=== PATIENT | male | born 1960 | race Caucasian/White ===

== ENCOUNTER 2017-03-28 22:06 | Outpatient (CLI) | payer OTHER | END 2017-03-28 22:07 | disposition home or self-care (01) | LOC: SC 22:06 | PROVIDERS: ATTEND Internal Medicine Pulmonary Disease | DX: G47.33 Obstructive sleep apnea (adult) (pediatric) (principal) | CPT/HCPCS: 95810 ==

== ENCOUNTER 2017-04-18 08:54 | Outpatient (CLI) | payer OTHER ==
--- NOTE | 2017-04-18 12:32 | XRAY Report ---
THREE VIEW LEFT SHOULDER: 04/18/2017 CLINICAL INDICATION: Pain. FINDINGS: Internal and external rotational views and a scapular Y view of the left shoulder demonstrate mild degenerative changes of the glenohumeral and acromioclavicular joints. An incidental enchondroma is noted in the proximal humerus. There is no evidence of fracture or dislocation. No radiopaque foreign body is seen in the soft tissues. IMPRESSION: MILD DEGENERATIVE CHANGES. TD: 04/18/2017 12:31
--- NOTE | 2017-04-18 12:33 | XRAY Report ---
THREE VIEW CERVICAL SPINE: 04/18/2017 CLINICAL INDICATION: Neck pain. FINDINGS: AP, lateral, swimmer's, odontoid views of the cervical spine demonstrate moderate degenerative disk disease. There is no evidence of fracture or subluxation. The prevertebral soft tissues are unremarkable. IMPRESSION: MODERATE DEGENERATIVE CHANGES. TD: 04/18/2017 12:32
== END 2017-04-18 08:55 | disposition home or self-care (01) ==
LOC: DI 08:54
PROVIDERS: ATTEND Internal Medicine
DX: I10 Essential (primary) hypertension (principal); R07.89 Other chest pain; M54.2 Cervicalgia; M50.30 Other cervical disc degeneration, unspecified cervical region; M19.011 Primary osteoarthritis, right shoulder
CPT/HCPCS: 72040; 93306

== ENCOUNTER 2017-05-07 09:12 | Outpatient (CLI) | payer OTHER | END 2017-05-07 09:13 | disposition home or self-care (01) | LOC: SC 09:12 | PROVIDERS: ATTEND Nurse Practitioner Family | DX: G47.33 Obstructive sleep apnea (adult) (pediatric) (principal) | CPT/HCPCS: 99212; 99214 ==

== ENCOUNTER 2018-02-20 08:49 | Outpatient (CLI) | payer OTHER ==
--- NOTE | 2018-02-20 11:01 | CARDIAC PROCEDURE NOTE ---
DATE OF SERVICE: 02/20/2018 Physician: Rachel Hein MD, [facility] INDICATIONS: Chest pain. CARDIAC RISK FACTORS: Male gender, obesity, hypertension, family history of heart disease. SUMMARY: After signing informed consent, the patient underwent a Dudley protocol stress test. There was no imaging ordered with this study. Resting heart rate: 70, Peak heart rate: 143 (86% predicted maximum heart rate for age). Resting blood pressure: 150/72, Peak blood pressure: 210/85. The patient exercised for 9 minutes and 46 seconds on a Dudley protocol. He achieved a peak heart rate of 143 (86% PMHR), 11.2 METS. The patient had mild shortness of breath at peak, no chest pain during exercise. Blood pressure response was excessive. RESTING EKG: Normal sinus rhythm, frequent PVCs, some episodes of ventricular trigeminy, early RS transition. With exercise, the PVCs subsided. PEAK EKG: No ischemic changes by EKG criteria. IMPRESSION: 1. Fair to good exercise tolerance. 2. Poorly controlled blood pressure. 3. No ischemic changes by EKG criteria at an adequate level of stress on a Dudley protocol treadmill test. 4. No imaging was ordered with this study. TD: 02/20/2018 10:43 RACHEL
== END 2018-02-20 08:50 | disposition home or self-care (01) ==
LOC: DI 08:49
PROVIDERS: ATTEND Nurse Practitioner Family
DX: I49.9 Cardiac arrhythmia, unspecified (principal); E66.9 Obesity, unspecified; I10 Essential (primary) hypertension; Z82.49 Family history of ischemic heart disease and other diseases of the circulatory system
CPT/HCPCS: 93017

== ENCOUNTER 2019-05-31 07:29 | Outpatient (CLI) | payer OTHER ==
[2019-05-31 10:43] LABS: ALBUMIN 4.1 g/dL (3.2-5.5); ALBUMIN/GLOBULIN RATIO 1.3 (1.0-2.2); ALKALINE PHOSPHATASE 75 IU/L (42-121); ALT ALANINE AMINOTRANSFERASE 56 IU/L (10-60); AST ASPARTATE AMINOTRANSFERASE 36 IU/L (10-42); BILIRUBIN,TOTAL 0.6 mg/dL (0.2-1.0); BUN - BLOOD UREA NITROGEN 20 mg/dL (6-20); CALCIUM 9.1 mg/dL (8.5-10.3); CARBON DIOXIDE - CO2 23 mmol/L (21-32); CHLORIDE 107 mmol/L (101-111); CHOLESTEROL 217 mg/dL; CREATININE 1.1 mg/dL (0.6-1.2); GLUCOSE 107 mg/dL (70-100); HDL CHOLESTEROL 31 mg/dL; SODIUM 139 mmol/L (135-145); TOTAL PROTEIN 7.2 g/dL (6.7-8.2)
[2019-05-31 13:52] LABS: LDL CHOLESTEROL,DIRECT 111 mg/dL; LDLD/HDL RATIO 3.6 (<3.6)
== END 2019-05-31 07:30 | disposition home or self-care (01) ==
LOC: LAB.S 07:29
PROVIDERS: ATTEND Family Medicine
DX: I10 Essential (primary) hypertension (principal); E78.2 Mixed hyperlipidemia
CPT/HCPCS: 36415; 80053; 80061; 83721

== ENCOUNTER 2019-09-20 16:01 | Outpatient (CLI) | payer OTHER ==
[2019-09-20] MEDS ORDERED: IOVERSOL 320 100 ML VIAL IVP ONE ×2 (16:17→20:33)
[2019-09-20] MEDS ORDERED: IOVERSOL 320 50 ML VIAL ONE (16:17)
--- NOTE | 2019-09-20 18:45 | CT Report ---
PROCEDURE: Abdomen/Pelvis W INDICATIONS: LLQ PAIN CONTRAST: IV CONTRAST: Optiray 320 ml: 100 PO CONTRAST: Optiray 320 ml50 TECHNIQUE: After the administration of oral and intravenous contrast, 5 mm thick sections acquired from the diap hragms to the symphysis. 5 mm thick coronal and sagittal reformats were acquired. For radiation dos e reduction, the following was used: automated exposure control, adjustment of mA and/or kV accordin g to patient size. COMPARISON: None. FINDINGS: Image quality: Excellent. ABDOMEN: Lung bases: Lung bases are clear. Heart size is normal. Solid organs: Liver and spleen are normal in size and enhancement. Gallbladder is within normal dyer its Biliary system is non dilated. Pancreas enhances normally. No adrenal nodules. Kidneys demons trate normal size and enhancement, without hydronephrosis. 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 Prominent left peripelvic cysts are also noted. Peritoneum and bowel: Bowel loops demonstrate normal wall thickness and caliber. No free fluid or a ir. Appendix is visualized and is within normal limits. A few sigmoid diverticuli are seen, no CT ev idence of acute diverticulitis. Nodes and vessels: No retroperitoneal or mesenteric adenopathy by size criteria. Aorta and inferior vena cava are normal in size. Miscellaneous: No ventral hernias. PELVIS: Genitourinary: Bladder wall thickness is normal. Miscellaneous: No inguinal hernias or adenopathy. Bones: No suspicious bony lesions. No vertebral body compression fractures. Degenerative disc dise ase throughout lower thoracic and lumbar spine is seen. IMPRESSION: 1. No bowel obstruction. No abnormal bowel wall thickening. Normal appearing appendix. A few sigmoid diverticuli with no CT evidence of acute diverticulitis. No free fluid of free air. 2. 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 Prominent left parapelvic renal cysts. No r enal stone or hydronephrosis. Reviewed by: Miah York MD on 09/20/2019 6:43 PM PDT Approved by: Miah York MD on 09/20/2019 6:43 PM PDT Station ID: [id number]
[2019-09-20] MEDS ORDERED: IOVERSOL 320 50 ML VIAL PO ONE (20:33)
== END 2019-09-20 16:02 | disposition home or self-care (01) ==
LOC: DI 16:01
PROVIDERS: ATTEND Nurse Practitioner Family
DX: R10.32 Left lower quadrant pain (principal)
CPT/HCPCS: 74177; Q9967

== ENCOUNTER 2020-04-27 06:45 | Outpatient (CLI) | payer OTHER ==
--- NOTE | 2020-04-27 09:59 | Ultrasound Report ---
PROCEDURE: Abdomen Complete INDICATIONS: ABDOMINAL PAIN TECHNIQUE: Real-time scanning was performed of the abdominal and retroperitoneal organs, with image documentatio n. COMPARISON: 09/20/2019 FINDINGS: Liver: Mildly increased hepatic parenchymal echogenicity. Otherwise unremarkable liver Gallbladder: Normally distended without wall thickening, shadowing calculus, sludge, or pericholecyst ic fluid. Biliary ducts: Normal caliber intrahepatic and extra hepatic biliary ducts. Pancreas: Visualized portions of the pancreas are sonographically normal. Spleen: Spleen is normal in size and homogeneous in echotexture. Kidneys: Both kidneys are normal in size. There are parapelvic cysts bilaterally, measuring 1.6 cm on the right and 2.5 cm on the left. The contour of the malleoli of the left upper pole kidney posterio rly and laterally is unchanged from 09/20/2019 exam, either congenital versus scarring from remote acq uired infection or trauma. No shadowing calculus or hydronephrosis. No perinephric fluid demonstrated . Aorta: Visualized aorta is normal in caliber at less than 3 cm. Iliacs: Proximal common iliac arteries are normal in caliber at less than 2.5 cm. IVC: Intrahepatic inferior vena cava is patent. Miscellaneous: No free abdominal fluid. IMPRESSION: No perinephric fluid or other finding of acute renal trauma. Contour abnormality of the left upper pole kidney, unchanged from 09/20/2019 examination, likely conge nital or remote scarring. Reviewed by: Chi Turner MD on 04/27/2020 9:58 AM PST Approved by: Chi Turner MD on 04/27/2020 9:58 AM PST Station ID: [id number]
== END 2020-04-27 06:46 | disposition home or self-care (01) ==
LOC: DI 06:45
PROVIDERS: ATTEND Internal Medicine
DX: R10.9 Unspecified abdominal pain (principal)

== ENCOUNTER 2020-11-10 07:40 | Outpatient (CLI) | payer OTHER ==
--- NOTE | 2020-11-10 09:28 | CT Report ---
PROCEDURE: Abdomen/Pelvis WO INDICATIONS: FLANK PAIN TECHNIQUE: Noncontrast 5 mm thick sections acquired from the diaphragms to the symphysis. 5 mm coronal and sagi ttal reformats were then performed. For radiation dose reduction, the following was used: automated exposure control, adjustment of mA and/or kV according to patient size. COMPARISON: 09/20/2019. FINDINGS: Image quality: Excellent. ABDOMEN: Lung bases: Lung bases are clear. Heart size is normal. Solid organs: Liver and spleen are normal in size. Hepatic steatosis is seen. Gallbladder is within normal limits. Pancreas is normal in contours. No adrenal nodules. Kidneys are normal in size, wi thout hydronephrosis or nephrolithiasis. Bilateral peripelvic renal cysts are again seen more promin ent in upper pole of left kidney unchanged from prior study. Congenital deformity involving upper wesley e of left kidney is again seen, unchanged in size and appearance from previous study. Peritoneum and bowel: Unenhanced bowel loops demonstrate normal wall thickness and caliber. No free fluid or air. Appendix is visualized and is within normal limits. Nodes and vessels: No retroperitoneal or mesenteric adenopathy by size criteria. Aorta and inferior vena cava are normal in caliber. Miscellaneous: No ventral hernias. PELVIS: Genitourinary: Bladder wall thickness is normal. Miscellaneous: No inguinal hernias or adenopathy. Bones: No suspicious bony lesions. No vertebral body compression fractures. IMPRESSION: 1. No significant changes from previous study. Likely congenital deformity involving upper pole of le ft kidney unchanged from prior study. Stable appearing bilateral parapelvic cysts, also unchanged fro m prior study. No renal stone or hydronephrosis. Normal-appearing bilateral ureters and urinary bladd er. 2. No bowel obstruction. No abnormal bowel wall thickening or mesenteric fat stranding. No free fluid or free air. 3. Hepatic steatosis. Reviewed by: Miah York MD on 11/10/2020 9:27 AM PDT Approved by: Miah York MD on 11/10/2020 9:27 AM PDT Station ID: [id number]
--- NOTE | 2020-11-10 15:42 | XRAY Report ---
PROCEDURE: Cervical Spine 4 View INDICATIONS: NECK PAIN TECHNIQUE: 4 view(s) of the cervical spine were acquired. COMPARISON: None. FINDINGS: Bones: No fractures or dislocations to the T1 level. The lateral masses of C1 appear intact on the odontoid view. No suspicious bony lesions. [id number] C2-C3, C3-C4, C4-C5, C5-C6, C6-C7 and C7 -T1 degenerative disc disease. Mild C3 6-C7 and C7-T1 facet arthropathy. Soft tissues: No prevertebral soft tissue swelling. IMPRESSION: 1. Multilevel degenerative disc disease. 2. Multilevel facet arthropathy. 3. No fracture. No acute osseous lesion. If there is continued clinical concern for pathology, then M RI should be considered for further evaluation. Reviewed by: Sherin Peterson MD, PhD on 11/10/2020 3:41 PM PDT Approved by: Sherin Peterson MD, PhD on 11/10/2020 3:41 PM PDT Station ID: [id number]
--- NOTE | 2020-11-10 15:44 | XRAY Report ---
PROCEDURE: Thoracic Spine 2 View INDICATIONS: NECK PAIN TECHNIQUE: 3 views of the thoracic spine were acquired. COMPARISON: None. FINDINGS: Bones: No fractures or dislocations. No suspicious bony lesions. 12 pairs of ribs are noted, and a ppear intact where visualized. Moderate degenerative disc changes noted throughout the thoracic spin e. Flowing osteophytes noted in the thoracic spine compatible with diffuse idiopathic skeletal hypero stosis (DISH). Soft tissues: No paravertebral stripe thickening. IMPRESSION: 1. Moderate multilevel degenerative disc disease. 2.DISH. 3. No fracture. No acute osseous lesion. If there is continued clinical concern for pathology, then M RI should be considered for further evaluation. Reviewed by: Sherin Peterson MD, PhD on 11/10/2020 3:42 PM PDT Approved by: Sherin Peterson MD, PhD on 11/10/2020 3:42 PM PDT Station ID: [id number]
== END 2020-11-10 07:41 | disposition home or self-care (01) ==
LOC: DI 07:40
PROVIDERS: ATTEND Nurse Practitioner Family
DX: N28.1 Cyst of kidney, acquired (principal); K76.0 Fatty (change of) liver, not elsewhere classified; M47.812 Spondylosis without myelopathy or radiculopathy, cervical region; M47.813 Spondylosis without myelopathy or radiculopathy, cervicothoracic region; M50.31 Other cervical disc degeneration, high cervical region; M51.34 Other intervertebral disc degeneration, thoracic region; M48.14 Ankylosing hyperostosis [Forestier], thoracic region; R10.9 Unspecified abdominal pain; I10 Essential (primary) hypertension; R74.01 Elevation of levels of liver transaminase levels; E78.1 Pure hyperglyceridemia
CPT/HCPCS: 36415; 80053; 80061; 81001; 82150; 83690; 83721; 84443; 85025; 87086

== ENCOUNTER 2020-11-10 08:10 | Outpatient (CLI) | payer OTHER ==
[2020-11-10 08:44] LABS: BASOPHILS # (AUTO) 0.1 10^3/uL (0.0-0.1); EOSINOPHILS # (AUTO) 0.2 10^3/uL (0.0-0.7); EOSINOPHILS % (AUTO) 3.1 %; HCT - HEMATOCRIT 43.3 % (42.0-52.0); HGB - HEMOGLOBIN 15.6 g/dL (14.0-18.0); MEAN CORPUSCULAR HEMOGLOBIN 32.9 pg (27.0-31.0); MEAN CORPUSCULAR VOLUME 91.4 fL (80.0-94.0); MEAN PLATELET VOLUME 9.8 fL (7.4-11.4); MONOCYTES # (AUTO) 0.6 10^3/uL (0.0-1.0); MONOCYTES % (AUTO) 11.4 %; NEUTROPHILS # (AUTO) 2.4 10^3/uL (1.5-6.6); NEUTROPHILS % (AUTO) 45.9 %; PLT - PLATELET COUNT 182 10^3/uL (130-450); RED BLOOD COUNT 4.74 10^6/uL (4.70-6.10); RED CELL DISTRIBUTION WIDTH 12.2 % (12.0-15.0); WHITE BLOOD COUNT 5.2 x10^3/uL (4.8-10.8)
[2020-11-10 08:45] LABS: BILIRUBIN,URINE NEGATIVE (NEGATIVE); GLUCOSE, URINE (UA) NEGATIVE (NEGATIVE); KETONES,URINE (UA) NEGATIVE (NEGATIVE); LEUKOCYTE ESTERASE, URINE NEGATIVE (NEGATIVE); NITRITE,URINE NEGATIVE (NEGATIVE); OCCULT BLOOD,URINE MODERATE (NEGATIVE); PROTEIN,URINE 100 mg/dL (NEGATIVE); UROBILINOGEN,URINE 0.2 (NORMAL) E.U./dL (NORMAL)
[2020-11-10 08:48] LABS: CLARITY,URINE CLEAR (CLEAR)
[2020-11-10 09:00] LABS: BACTERIA,URINE Few /HPF (None Seen); MUCUS,URINE Moderate Strands; SQUAMOUS EPITHELIAL CELL,UR NONE SEEN (<= Few); WBC,URINE 0-3 /HPF (0-3)
[2020-11-10 09:01] LABS: CASTS, URINE 0-2 Hyaline Casts /LPF; YEAST,URINE PRESENT
[2020-11-10 09:05] LABS: ALBUMIN 4.2 g/dL (3.2-5.5); ALBUMIN/GLOBULIN RATIO 1.4 (1.0-2.2); ALKALINE PHOSPHATASE 80 IU/L (42-121); ALT ALANINE AMINOTRANSFERASE 47 IU/L (10-60); AMYLASE 54 U/L (28-100); AST ASPARTATE AMINOTRANSFERASE 30 IU/L (10-42); BILIRUBIN,TOTAL 0.8 mg/dL (0.2-1.0); BUN - BLOOD UREA NITROGEN 20 mg/dL (6-20); CALCIUM 9.2 mg/dL (8.5-10.3); CARBON DIOXIDE - CO2 24 mmol/L (21-32); CHLORIDE 105 mmol/L (101-111); CHOL/HDL RATIO 7.8 (<5.0); CHOLESTEROL 235 mg/dL; CREATININE 1.4 mg/dL (0.6-1.2); GFR - MDRD 52 (>89); GLUCOSE 110 mg/dL (70-100); HDL CHOLESTEROL 30 mg/dL; LIPASE 33 U/L (22-51); POTASSIUM 4.2 mmol/L (3.5-5.0); SODIUM 139 mmol/L (135-145); TOTAL PROTEIN 7.3 g/dL (6.7-8.2); TRIGLYCERIDES 476 mg/dL
[2020-11-10 09:14] LABS: THYROID STIMULATING HORMONE 1.84 uIU/mL (0.34-5.60)
[2020-11-10 10:20] LABS: LDL CHOLESTEROL,DIRECT 95 mg/dL; LDLD/HDL RATIO 3.2 (<3.6)
== END 2020-11-10 08:11 | disposition home or self-care (01) ==
LOC: LAB 08:10
PROVIDERS: ATTEND Nurse Practitioner Family
DX: R10.9 Unspecified abdominal pain (principal); I10 Essential (primary) hypertension; R74.01 Elevation of levels of liver transaminase levels; E78.1 Pure hyperglyceridemia
CPT/HCPCS: 36415; 80053; 80061; 81001; 82150; 83690; 83721; 84443; 85025; 87086